=== PATIENT | female | born 1955 | race African-American/Black ===

== ENCOUNTER 2016-07-10 10:59 | Emergency (ER) | payer OTHER ==
[~2016-07-10] VITALS: Ht 188 cm; Wt 84.5 kg
[~2016-07-10 10:59] MED LIST: ALBU18HF IH; AMLO-145 PO; ATOR20TA38 PO; IBUP-1542 PO; LANT3I SC; METF1000 PO; PALI39DI IM; PREN1TAB31 PO; RANI150C11 PO
[2016-07-10 11:03] VITALS: Ht 188 cm; Wt 84.5 kg
--- NOTE | 2016-07-10 12:50 | ERD ---
ER Documentation Chief Complaint Date/Time DATE: 07/10/16 TIME: 12:49 Chief Complaint VOMITING STARTED TODAY,DENIES PAIN HPI Patient is a 60-year-old female with a past medical history of hypertension, high cholesterol and possible mental health illness who presents the ED with an episode of nonbloody nonbilious emesis 2 days ago and dysuria and one episode of watery diarrhea. Nonbloody nonblack or tarry diarrhea she states that she has had a lot of hot she does. She denies abdominal pain or nausea. She states that she is feeling much better today and has no complaints. She denies chest pain or cough or shortness of breath. Denies headache or dizziness. Denies leg pain or leg swelling. Denies hallucinations. Denies suicidal or homicidal tendencies. Patient states that she is in a gayle and does not want any workup done today. ROS All systems reviewed and are negative except as per history of present illness. Medications Home Meds Active Scripts Acetaminophen* (Tylophen*) 500 Mg Capsule, 1 CAP PO Q6H Y for PAIN AND OR ELEVATED TEMP, #20 CAP Prov:HUMA DIAS PA-C 07/10/16 Reported Medications Ranitidine Hcl (Ranitidine Hcl) 150 Mg Capsule, 150 MG PO BID, #60 CAP 01/20/16 Ibuprofen* (Ibuprofen*) 600 Mg Tablet, 600 MG PO Q6, TAB 01/20/16 Paliperidone Palmitate (Invega Sustenna) 39 Mg/0.25 Ml Disp.syrin, 39 MG IM ONCE A MONTH , SYR 09/18/15 Atorvastatin Calcium* (Atorvastatin Calcium*) 20 Mg Tablet, 20 MG PO DAILY, TAB 03/08/14 Amlodipine Besylate* (Amlodipine Besylate*) 5 Mg Tablet, 5 MG PO DAILY, TAB 03/08/14 Vits #90-Iron Fum-FA ( Formula) 1 Each Tablet, 1 TAB PO DAILY, TAB 03/08/14 Insulin Glargine* (Lantus*) 100 Unit/Ml Soln, 47 UNIT SC DAILY, EA 03/08/14 Albuterol Sulfate* (Ventolin HFA*) 18 Gm Hfa.aer.ad, 2 PUFF IH Q4H Y for WHEEZING, EA 10/09/13 Metformin Hcl* (Metformin Hcl*) 1,000 Mg Tablet, 1000 MG PO BID, TAB 10/09/13 Allergies Allergies: Coded Allergies: No Known Allergy (Unverified , 01/20/16) PMhx/Soc History of Surgery: Yes (COLONOSCOPY, HYSTERECTOMY, 2 CESAREANS) Anesthesia Reaction: No Hx Neurological Disorder: No Hx Respiratory Disorders: Yes (ASTHMA (FOR 3 YRS SINCE MOVING TO [place], FROM [place])) Hx Cardiac Disorders: Yes (HTN) Hx Psychiatric Problems: Yes (MENTAL DO/UNK PER PT) Hx Miscellaneous Medical Probl: Yes (01/19/16 ER VISIT FOR UTERINE BLEEDING,TO F/U W/PMD) Hx Alcohol Use: No Hx Substance Use: No Hx Tobacco Use: No FmHx Family History: No coronary disease, No diabetes, No other Physical Exam Vitals Vital Signs Date Time Temp Pulse Resp B/P Pulse Ox O2 Delivery O2 Flow Rate FiO2 07/10/16 11:03 98.7 96 18 122/73 99 Physical Exam GENERAL: Well-developed, well-nourished female. Appears in no acute distress. HEAD: Normocephalic, atraumatic. EYES: Pupils are equally reactive bilaterally. EOMs grossly intact. No conjunctival erythema. ENT: Moist mucous membranes. No uvula deviation. No kissing tonsils. No exudates. NECK: Supple. No lymphadenopathy or thyromegaly. No meningismus. negative kernig. negative brudinski. LUNG: Clear to auscultation bilaterally. No rhonchi, wheezing, rales or coarse breath sounds. HEART: Regular rate and rhythm. No murmurs, rubs or gallops. ABDOMEN: No scars, ecchymosis or rashes noted. Soft, nontender, and nondistended. Positive bowel sounds in all four quadrants. No rebound tenderness , no guarding. (-) McBurneys point tenderness. No CVA tenderness. BACK: No midline tenderness. Extremities: Equal pulses bilaterally. No peripheral clubbing, cyanosis or edema. No unilateral leg swelling. NEUROLOGIC: Alert and oriented. Moving all four extremities. 5/5 strength in all extremities. Normal speech. Steady gait. Renal nerves II through XII intact. SKIN: Normal color. Warm and dry. No rashes or lesions. Capillary refill < 2 seconds Results 24 hrs Laboratory Tests Test 07/10/16 12:55 Bedside Urine pH (LAB) 5.0 Bedside Urine Protein (LAB) Negative Bedside Urine Glucose (UA) 0.50% Bedside Urine Ketones (LAB) Negative Bedside Urine Blood Negative Bedside Urine Nitrite (LAB) Negative Bedside Urine Leukocyte Esterase (L Negative Procedures/MDM ER COURSE: I kept the patient and/or family informed of laboratory and diagnostic imaging results throughout the emergency room course. LABORATORY STUDIES NEGATIVE TEST. URINE DIP SHOWS NO NITRITES OR LEUKOCYTES OR HEMATURIA. MEDICAL DECISION MAKING: This is a 60-year-old female who presents with an episode of vomiting and one episode of watery diarrhea. Vital signs were reviewed. Patient is afebrile. Patient is not hypoxic. Patient is nontoxic or ill-appearing. Patient did not want any laboratory studies or imaging studies done today. Patient stated that she just wanted to have her urine checked and to leave. Patient's urine dip showed no nitrites or leukocytes or hematuria. I have low suspicion for UTI. I have low suspicion for abdominal acute emergency. Patient was unremarkable upon examination. I have low suspicion for psychiatric emergency. Patient does not have hallucination or suicidal or homicidal tendencies. Patient is hemodynamically stable. DISCHARGE: At this time, patient is stable for discharge and outpatient management with no new complaints during the ER course. Patient was sent home with Tylenol and to follow-up with her primary care appointment that she has in 2 days.. Patient will be discharged home with instructions to recheck for new or worsening symptoms such as fever, nausea, weakness, LOC and to follow up with primary care in the next 1-2 days. Patient was advised to return to the ER for any new or worsening symptoms. Plan was discussed and patient and/or family understands and agrees. Home instructions were given. Departure Diagnosis: Primary Impression: Diarrhea Diarrhea type: unspecified type Qualified Code: R19.7 - Diarrhea, unspecified type Condition: Stable HUMA DISA PA-C Jul 10, 2016 12:50
[2016-07-10 12:52] LABS: URINE BLOOD (Dip) POC Negative (NEGATIVE)
[2016-07-10] MEDS ORDERED: ACET500C5 PO (13:05)
== END 2016-07-10 14:47 | disposition home or self-care (01) ==
LOC: FTE 10:59
DX: R19.7 Diarrhea, unspecified (principal); I10 Essential (primary) hypertension; E11.9 Type 2 diabetes mellitus without complications; J45.909 Unspecified asthma, uncomplicated; Z79.4 Long term (current) use of insulin; Z79.84 Long term (current) use of oral hypoglycemic drugs
CPT/HCPCS: 81003; 99283

== ENCOUNTER 2016-09-22 16:57 | Emergency (ER) | payer OTHER ==
[~2016-09-22] VITALS: Ht 165.1 cm; Wt 80.0 kg
[~2016-09-22 16:57] MED LIST changes: +ACET500C5 PO
[2016-09-22 16:58] VITALS: Ht 165.1 cm; Wt 80.0 kg
--- NOTE | 2016-09-22 23:21 | PSY ---
Date/Time of Note Date/Time of Note DATE: 09/22/16 TIME: 23:20 Psychiatric Subjective Eval Consent Pt consented to telemedicine: Yes Subjective Evaluation Patient location: emergency Chief Complaint: pt bib self with c/o 38 wks , and bleeding, with pain , pt has psych Medical history Problems Medical Problems: (1) Abdominal pain Status: Acute (2) Acid reflux Status: Acute (3) Bronchitis Status: Acute (4) Diarrhea Status: Acute (5) Dizziness Status: Acute (6) Dysfunctional uterine bleeding Status: Acute (7) Dysuria Status: Acute (8) Fibroids Status: Acute (9) Hallucination of body sensation Status: Acute (10) Hemorrhoids Status: Acute (11) Hyperglycemia Status: Acute (12) Nausea vomiting and diarrhea Status: Acute (13) Patient left without being seen Status: Acute (14) Psychological disorder Status: Acute (15) Schizo-affective psychosis Status: Acute (16) UTI (lower urinary tract infection) Status: Acute Allergies: Coded Allergies: No Known Allergy (Unverified , 01/20/16) Assessment Additional comments: IDENTIFYING INFORMATION: 61 year old -[place] Female patient who is currently located at the hospital and for whom psychiatric consultation was requested. SOURCES OF INFORMATION: The patient who appears to be unreliable and the medical records; the nursing staff. CHIEF COMPLAINT: "I am and I am not". HISTORY OF PRESENT ILLNESS: The patient was interviewed via telemedicine in the presence of and under the supervision of nursing staff of the hospital. The consent to conducting this interview via telemedicine was obtained by the nursing staff at the hospital. ASAF Aguilar reports that the patient presents reporting that she is 38-weeks and needs to deliver her baby. Pt is talking about the Bible. Pt was refusing to participate with blood testing and was becoming verbally aggressive with staff. H/o schizoaffective disorder. Is not on a hold. The patient reports that she has documents that prove that she is 38-weeks , showed them to my head, and they are telling her that she is not . She then reports that she started preaching and the hospital did not like that. She reports that her is past the 38 weeks, and they told her that she is since 2014. She reports that the hospital will lie to her about her status and tell her that she is not on purpose. The patient was calling 911 right before I called to report that she is being held against her will. She reports that she was at a residential but they told her that they no longer want her there. 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 She missed the audition because they were sent to her old email address. Denies having AH, VH, SI, HI. She reports that she was taken off the invega and her case was closed at [facility] last year. She reports that she was switched to Haldol and Latuda. She reports that she has taken these meds sporadically. The patient denies using alcohol heavily or regularly. The patient denies using any other substances. In terms of past psychiatric history, the patient reports having a history of past psychiatric hospitalizations; last time was 3-4 years ago. The patient reports having a history of no past suicide attempts. PAST MEDICAL HISTORY: DM, HTN. CURRENT MEDICATIONS: lantus, amlodipine. ALLERGIES TO MEDICATIONS: NKDA. SOCIAL HISTORY: the paper says that I am single, refused to answer questions regarding whether she has children or not; reports that she believes that she is employed; she reports that she participated in a Hoola Show with some vegetable handler, and she has some auditions with [employer] and she is an actress with an agent; was living at a residential, homeless, no access to firearms. LABORATORY TESTS: not available because the patient has been refusing labs. REVIEW OF SYSTEMS: Constitutional (e.g., fever, weight loss): negative; Eyes, Ears, Nose, Mouth, Throat: negative; Cardiovascular: negative; Respiratory: negative; Gastrointestinal: negative; Genitourinary: negative; Musculoskeletal: negative; Integumentary (skin and/or breast): negative; Neurological: negative; Psychiatric: as per HPI; Endocrine: negative; Hematologic/Lymphatic: negative; Allergic/Immunologic: negative. MENTAL STATUS EXAMINATION: General Appearance and Behavior: restless, appears to be responding to internal stimuli, cooperative with most of the interview, excessively pleasant at times, somewhat angry at other times with the current interviewer, makes good eye contact, poorly groomed, increased psychomotor activity, no abnormal movements noted. Speech: increased rate, regular rhythm, normal latency, normal volume, increased amount. Flow of thought: tangential, illogical at times, logical at other times. Content of thought: denies having auditory hallucinations, + bizarre, paranoid delusions including delusion of pseudocyesis, no visual hallucinations, denies having suicidal ideation; no homicidal ideation. Mood: fine. Affect: somewhat euphoric, decreased range of reactivity. Attention: normal based on the interview. Insight: poor. Judgment: poor. Memory: normal based on the interview. Sensorium: alert and oriented to person, place, September 21, 2016. ASSESSMENT: The patient's presentation and history are consistent with the diagnosis of unspecified psychotic disorder. The patient presents with an exacerbation of psychosis in the context of medication noncompliance. Dalton I: unspecified psychotic disorder. Dalton II: Deferred. Dalton III: see PMH. Dalton IV: social stressors. Dalton V: GAF: 10. PLAN: - Medication management: Would start risperdal 0.5 mg po bid. The patient agreed to this. Risks, benefits , alternatives discussed in detail, and the patient provided informed consent to proceed with this plan. Would start haloperidol 5 mg IM PRN severe agitation q4 hours. Would start diphenhydramine 50 mg IM PRN severe agitation q4 hours. Would start lorazepam 2 mg IM PRN severe agitation q4 hours Will defer to the inpatient psychiatry team for other medication changes. - Labs: will check CBC, CMP, UDS, alcohol level. - Psychotherapy: Provided supportive psychotherapy and psychoeducation. - Disposition: Would recommend involuntary admission to the inpatient psychiatric unit given the severity of the patient's psychiatric condition and the fact that the patient is an imminent danger to self and/or others so long as the patient has been cleared medically for admission to psychiatry. Inpatient psychiatric admission is at this time the least restrictive environment where the patient can receive the psychiatric care that is needed. Would place on suicide precautions. The patient fulfills criteria for being placed on an involuntary hold for being gravely disabled due to a psychiatric disorder. Discussed about the above plan with Dr. Fragoso. MIKAYLA CAM MD Sep 22, 2016 23:20
[2016-09-22 23:52] LABS: ABNORMAL IP MESSAGE 1; BASOPHILS % 0.3 % (0.0-2.0); EOSINOPHILS # 0.2 10^3/ul (0.0-0.5); EOSINOPHILS % 1.5 % (0.0-7.0); HEMOGLOBIN 15.3 g/dl (12.0-16.0); LYMPHOCYTES # 5.3 10^3/ul (0.8-2.9); LYMPHOCYTES % 44.7 % (15.0-51.0); MEAN CORPUSCULAR HEMOGLOBIN 28.5 pg (29.0-33.0); MEAN PLATELET VOLUME 10.8 fl (7.4-10.4); MONOCYTE # 0.6 10^3/ul (0.3-0.9); MONOCYTES % 5.2 % (0.0-11.0); PLATELET COUNT 460 10^3/UL (140-415); RED BLOOD COUNT 5.36 10^6/ul (4.20-5.40); RED CELL DISTRIBUTION WIDTH 13.2 % (11.5-14.5); WHITE BLOOD COUNT 11.8 10^3/ul (4.8-10.8)
[2016-09-22 23:57] LABS: ADD UMIC YES; UR ASCORBIC ACID NEGATIVE (NEGATIVE); UR BACTERIA FEW /HPF (NONE SEEN); UR BILIRUBIN (Dip) NEGATIVE (NEGATIVE); UR BLOOD (Dip) NEGATIVE (NEGATIVE); UR CLARITY SLIGHTLY CLOUDY (CLEAR); UR COLOR YELLOW (YELLOW); UR GLUCOSE (Dip) 3+ mg/dL (NEGATIVE); UR KETONES (Dip) NEGATIVE (NEGATIVE); UR LEUKOCYTE ESTERASE (Dip) 1+ Leu/ul (NEGATIVE); UR NITRITE (Dip) NEGATIVE (NEGATIVE); UR RBC 2 /HPF (0-5); UR SPECIFIC GRAVITY (Dip) 1.028 (1.003-1.030); UR SQUAMOUS EPITHELIAL CELL FEW /HPF (FEW); UR TOTAL PROTEIN (Dip) NEGATIVE (NEGATIVE); UR UROBILINOGEN (Dip) NEGATIVE (NEGATIVE)
[2016-09-23 00:09] LABS: CARBON DIOXIDE 23 mmol/L (21-31); CHLORIDE 95 mmol/L (97-110); POSITIVE DIFF @See below; POTASSIUM 3.4 mmol/L (3.5-5.1); SODIUM 134 mmol/L (135-144)
[2016-09-23 00:10] LABS: ALANINE AMINOTRANSFERASE 35 IU/L (13-69); ALBUMIN 4.9 g/dl (3.3-4.9); ALBUMIN/GLOBULIN RATIO 1.19; ALKALINE PHOSPHATASE 204 IU/L (42-121); ANION GAP 19 (8-16); ASPARTATE AMINO TRANSFERASE 22 IU/L (15-46); BILIRUBIN,INDIRECT 0.4 mg/dl (0-1.1); BILIRUBIN,TOTAL 0.4 mg/dl (0.2-1.3); BLOOD UREA NITROGEN 9 mg/dl (7-20); CALCIUM 10.6 mg/dl (8.4-10.2); CREATININE 0.68 mg/dl (0.44-1.00)
[2016-09-23 00:13] LABS: ACETAMINOPHEN < 10.0 ug/ml (10.0-30.0); ETHANOL < 10.0 mg/dl; SALICYLATE < 1.0 mg/dl (5.0-30.0)
[2016-09-23 00:14] LABS: BARBITURATES Negative (NEGATIVE); BENZODIAZEPINES Negative (NEGATIVE); CANNABINOIDS Negative (NEGATIVE); COCAINE Negative (NEGATIVE); GLUCOSE 538 mg/dl (70-220); OPIATES Negative (NEGATIVE)
[2016-09-23] MEDS ORDERED: INSULIN REGULAR, HUMAN 100 UNIT/1 ML 3ML VIAL SC ONE ×2 (02:00→04:30)
--- NOTE | 2016-09-23 03:32 | ERA ---
ER Documentation Chief Complaint Date/Time DATE: 09/23/16 TIME: 03:31 Chief Complaint pt bib self with c/o 38 wks , and bleeding, with pain, pt has psych HPI 61-year-old female comes in saying she is 30 weeks and that she is about to deliver her baby. Patient is very tangential superintendent service speech patterns. Cannot provide relevant history. ROS All systems reviewed and are negative except as per history of present illness. Medications Home Meds Reported Medications Ibuprofen* (Ibuprofen*) 600 Mg Tablet, 600 MG PO Q6, TAB 01/20/16 Atorvastatin Calcium* (Atorvastatin Calcium*) 20 Mg Tablet, 20 MG PO DAILY, TAB 03/08/14 Amlodipine Besylate* (Amlodipine Besylate*) 5 Mg Tablet, 5 MG PO DAILY, TAB 03/08/14 Vits #90-Iron Fum-FA ( Formula) 1 Each Tablet, 1 TAB PO DAILY, TAB 03/08/14 Insulin Glargine* (Lantus*) 100 Unit/Ml Soln, 60 UNIT SC DAILY, EA 03/08/14 Metformin Hcl* (Metformin Hcl*) 1,000 Mg Tablet, 1000 MG PO BID, TAB 10/09/13 Discontinued Reported Medications Ranitidine Hcl (Ranitidine Hcl) 150 Mg Capsule, 150 MG PO BID, #60 CAP 01/20/16 Paliperidone Palmitate (Invega Sustenna) 39 Mg/0.25 Ml Disp.syrin, 39 MG IM ONCE A MONTH , SYR 09/18/15 Albuterol Sulfate* (Ventolin HFA*) 18 Gm Hfa.aer.ad, 2 PUFF IH Q4H Y for WHEEZING, EA 10/09/13 Discontinued Scripts Acetaminophen* (Tylophen*) 500 Mg Capsule, 1 CAP PO Q6H Y for PAIN AND OR ELEVATED TEMP, #20 CAP Prov:HUMA DIAS PA-C 07/10/16 Allergies Allergies: Coded Allergies: No Known Allergy (Unverified , 09/23/16) PMhx/Soc History of Surgery: Yes (COLONOSCOPY, HYSTERECTOMY, 2 CESAREANS) Anesthesia Reaction: No Hx Neurological Disorder: No Hx Respiratory Disorders: Yes (asthma, bronchitis) Hx Cardiac Disorders: Yes (HTN) Hx Psychiatric Problems: Yes (hallucinations, schizo-affective dz, psychological dz, psychosis) Hx Miscellaneous Medical Probl: Yes (dm2, uti, uterine fibrioids, gerd, hemmorhoids) Hx Alcohol Use: No Hx Substance Use: No Hx Tobacco Use: No Smoking Status: Never smoker Physical Exam Vitals Vital Signs Date Time Temp Pulse Resp B/P Pulse Ox O2 Delivery O2 Flow Rate FiO2 09/23/16 01:22 97.9 92 16 158/70 100 Room Air 09/22/16 16:58 98.3 84 18 142/68 98 Physical Exam Const: [] Head: Atraumatic Eyes: Normal Conjunctiva ENT: Normal External Ears, Nose and Mouth. Neck: Full range of motion..~ No meningismus. Resp: Clear to auscultation bilaterally Cardio: Regular rate and rhythm, no murmurs Abd: Soft, non tender, non distended. Normal bowel sounds Skin: No petechiae or rashes Back: No midline or flank tenderness Ext: No cyanosis, or edema Neur: Awake and alert Psych: Normal Mood and Affect Result Diagram: 09/22/16 2320 09/22/16 2320 Results 24 hrs Laboratory Tests Test 09/22/16 23:20 09/23/16 02:51 White Blood Count 11.810^3/ul Red Blood Count 5.3610^6/ul Hemoglobin 15.3g/dl Hematocrit 45.0% Mean Corpuscular Volume 84.0fl Mean Corpuscular Hemoglobin 28.5pg Mean Corpuscular Hemoglobin Concent 34.0g/dl Red Cell Distribution Width 13.2% Platelet Count 26179^3/UL Mean Platelet Volume 10.8fl Neutrophils % 48.0% Lymphocytes % 44.7% Monocytes % 5.2% Eosinophils % 1.5% Basophils % 0.3% Nucleated Red Blood Cells % 0.0/100WBC Neutrophils # (Manual) 5.710^3/ul Lymphocytes # 5.310^3/ul Monocytes # 0.610^3/ul Eosinophils # 0.210^3/ul Basophils # 0.010^3/ul Nucleated Red Blood Cells # 0.010^3/ul Urine Color YELLOW Urine Clarity SLIGHTLY CLOUDY Urine pH 5.0 Urine Specific Fenton 1.028 Urine Ketones NEGATIVEmg/dL Urine Nitrite NEGATIVEmg/dL Urine Bilirubin NEGATIVEmg/dL Urine Urobilinogen NEGATIVEmg/dL Urine Leukocyte Esterase 1+Kaden/ul Urine Microscopic RBC 2/HPF Urine Microscopic WBC 6/HPF Urine Squamous Epithelial Cells FEW/HPF Urine Bacteria FEW/HPF Urine Hemoglobin NEGATIVEmg/dL Urine Glucose 3+mg/dL Urine Total Protein NEGATIVEmg/dl Sodium Level 134mmol/L Potassium Level 3.4mmol/L Chloride Level 95mmol/L Carbon Dioxide Level 23mmol/L Anion Gap 19 Blood Urea Nitrogen 9mg/dl Creatinine 0.68mg/dl Glucose Level 538mg/dl Calcium Level 10.6mg/dl Total Bilirubin 0.4mg/dl Direct Bilirubin 0.00mg/dl Indirect Bilirubin 0.4mg/dl Aspartate Amino Transf (AST/SGOT) 22IU/L Alanine Aminotransferase (ALT/SGPT) 35IU/L Alkaline Phosphatase 204IU/L Total Protein 9.0g/dl Albumin 4.9g/dl Globulin 4.10g/dl Albumin/Globulin Ratio 1.19 Salicylates Level < 1.0mg/dl Urine Opiates Screen Negative Acetaminophen Level < 10.0ug/ml Urine Barbiturates Negative Urine Amphetamines Screen Negative Urine Benzodiazepines Screen Negative Urine Cocaine Screen Negative Urine Cannabinoids Negative Ethyl Alcohol Level < 10.0mg/dl Bedside Glucose 436mg/dL Current Medications Medications (Trade) Dose Ordered Sig/Brook Route PRN Reason Start Time Stop Time Status Last Admin Dose Admin Insulin Human Regular (Humulin R) 8 unit ONCE ONCE SC 09/23/16 02:00 09/23/16 02:01 DC 09/23/16 02:46 Procedures/MDM Patient's behavioral symptoms have stabilized while in the department. Patient is medically cleared and appropriate for psychiatric evaluation and work up. No e/o neurologic, toxic, infectious, or metabolic cause. Patient's blood glucose was elevated initially, with no evidence of diabetic ketoacidosis. Patient was given insulin subcu Departure Diagnosis: Primary Impression: Acute psychosis Additional Impression: Acute hyperglycemia Condition: Stable BALWINDER FONTANEZ Sep 23, 2016 03:32
[2016-09-23 05:26] VITALS: BP 134/79; PULSE 84; RESP 17; TEMP 98.2
== END 2016-09-23 06:54 ==
LOC: E/R 16:57
DX: F23 Brief psychotic disorder (principal); E11.65 Type 2 diabetes mellitus with hyperglycemia; I10 Essential (primary) hypertension; J45.909 Unspecified asthma, uncomplicated; Z79.4 Long term (current) use of insulin; Z79.84 Long term (current) use of oral hypoglycemic drugs
CPT/HCPCS: 36415; 80053; 80306; 80307; 81001; 82962; 85025; 96372; 99285; J1815